=== PATIENT | female | born 1985 | race Caucasian/White ===

== ENCOUNTER 2023-01-02 20:34 | Emergency (ER) | payer MEDICAID ==
[~2023-01-02] VITALS: Ht 167.6 cm; Wt 122.5 kg
[2023-01-02] MEDS: KETAMINE HCL 500 MG/10 ML INJ IV ONE ×2 (20:20→22:15)
--- NOTE | 2023-01-02 20:34 | NUR ---
PT BIBA FOR GLF. PT PLACED ON MONITOR.
[2023-01-02] MEDS ORDERED: L. A1TAB10 PO (21:04)
[2023-01-02] MEDS ORDERED: HEPA500034 SQ (21:04)
[2023-01-02] MEDS ORDERED: MAGN200T5 PO (21:04)
[2023-01-02] MEDS ORDERED: ARIP15TA3 PO (21:04)
[2023-01-02] MEDS ORDERED: BUSP10TA3 PO (21:04)
[2023-01-02] MEDS ORDERED: MAGN400O6 PO (21:04)
[2023-01-02] MEDS ORDERED: IBUP-2314 PO (21:04)
[2023-01-02] MEDS ORDERED: DEXT38GE12 PO (21:04)
[2023-01-02] MEDS ORDERED: FERR-56 PO (21:04)
[2023-01-02] MEDS ORDERED: FAMO20TA8 PO (21:04)
[2023-01-02] MEDS ORDERED: DOCU100T2 PO (21:04)
[2023-01-02] MEDS ORDERED: MELA3CAP2 PO (21:04)
[2023-01-02] MEDS ORDERED: METO25TA6 PO (21:04)
[2023-01-02] MEDS ORDERED: CRAN450T9 PO (21:04)
[2023-01-02] MEDS ORDERED: HYDR-3976 PO (21:04)
[2023-01-02] MEDS ORDERED: BISA10SU95 RC (21:04)
[2023-01-02] MEDS ORDERED: ACET325C7 PO (21:04)
[2023-01-02] MEDS ORDERED: KETAMINE HCL 500 MG/10 ML INJ IV ONE ×2 (21:15→22:15)
[2023-01-02] MEDS ORDERED: KETAMINE HCL 200 MG/20 ML VIAL ONE (21:37)
[2023-01-02] MEDS ORDERED: TRAZ-257 PO (21:41)
[2023-01-02] MEDS ORDERED: SENN1TAB59 PO (21:41)
[2023-01-02] MEDS ORDERED: NALO4SPR NS (21:41)
[2023-01-02] MEDS ORDERED: AMIN30LI2 PO (21:41)
[2023-01-02] MEDS ORDERED: PREG50CA PO (21:41)
[2023-01-02] MEDS ORDERED: ONDA-104 PO (21:41)
--- NOTE | 2023-01-02 22:15 | NUR ---
AT BEDSIDE FOR EVAL. PT PLACED ON BEDPAN PER REQUEST.
--- NOTE | 2023-01-02 22:50 | NUR ---
PT GIVEN A SANDWICH AND SNACK
[2023-01-02] MEDS ORDERED: ZIPRASIDONE MESYLATE 20 MG VIAL IM ONE ×2 (23:30→23:37)
[2023-01-03] MEDS ORDERED: KETAMINE HCL 200 MG/20 ML VIAL ONE (00:03)
[2023-01-03] MEDS ORDERED: IV NORMAL SALINE 500 ML IV ONE (00:45)
--- NOTE | 2023-01-03 00:46 | NUR ---
PT TO CT VIA [facility].
[2023-01-03] MEDS ORDERED: IV NS 1000 ML 1,000 ML IV ONE (01:45)
[2023-01-03] MEDS ORDERED: KETAMINE HCL 500 MG/10 ML INJ IM ONE ×2 (02:30)
--- NOTE | 2023-01-03 03:00 | NUR ---
PT MEDICALLY CLEARED BY DR SANCHEZ.
--- NOTE | 2023-01-03 03:20 | NUR ---
REPORT CALLED TO [facility]. REPORT GIVEN TO HUDSON HALLMAN.
--- NOTE | 2023-01-03 03:30 | NUR ---
[facility] CALLED TO TRANSPORT PT BACK TO HER FACILITY. ETA 1.5 TO 2 HRS.
--- NOTE | 2023-01-03 03:30 | NUR ---
Eden roman in ED - 01/03/23 at 0335 by [facility] WAS CALLED TO RETURN PT TO HER FACILITY. ETA 1.5 TO 2 HRS.
[2023-01-03] MEDS ORDERED: AMOX-430 PO (04:51)
--- NOTE | 2023-01-03 05:00 | NUR ---
[facility] ARRIVED TO TRANSPORT PT TO [facility]. REPORT GIVEN TO BOBBY CERVANTES.
--- NOTE | 2023-01-03 05:00 | NUR ---
Patient discharged to home in stable condition. Written and verbal after care instructions given. Patient AND EMT'S verbalizes understanding of instructions. REPORT GIVEN TO HUDSON HALLMAN AT [facility]. Stressed follow up or return to ER for worsening s/s. PT LEFT VIA GURNEY / AMBULANCE.
[2023-01-03 05:14] VITALS: BP 106/78; TEMP 96.9; O2SAT 97
== END 2023-01-03 05:00 ==
LOC: ER 20:41
DX: Z04.3 Encounter for examination and observation following other accident (principal); J18.9 Pneumonia, unspecified organism; R51.9 Headache, unspecified; M54.2 Cervicalgia; R10.2 Pelvic and perineal pain; Z79.899 Other long term (current) drug therapy; W18.39XA Other fall on same level, initial encounter; Y93.89 Activity, other specified; Y92.89 Other specified places as the place of occurrence of the external cause; Y99.8 Other external cause status
CPT/HCPCS: 99285; 70450; 96374; 84702; 36415; 72125; 96376; 96372 ×2; 71045; 96361; J3486; J7040; A4663